=== PATIENT | male | born 1960 | race Caucasian/White ===

== ENCOUNTER 2020-03-25 13:54 | Emergency (ER) | payer BC ==
[2020-03-25] MEDS ORDERED: DEXAMETHASONE 4 MG TAB PO ONE (14:09)
--- NOTE | 2020-03-25 14:32 | RAD ---
EXAM DESCRIPTION: Chest,1 View CLINICAL HISTORY: 59 years Male, feeling bad in general COMPARISON: None. FINDINGS: Cardiomediastinal silhouette is normal. No focal consolidation, pneumothorax or pleural effusion. Osseous structures unremarkable. IMPRESSION: No acute findings. Electronically signed by: Nathan Davis MD 03/25/2020 2:31 PM CDT
[2020-03-25] MEDS ORDERED: PROCHLORPERAZINE INJ 10 MG/2 ML VIAL IV ONE (14:50)
--- NOTE | 2020-03-25 15:24 | ED.PDOC ---
History of Present Illness - General Chief Complaint: General Time Seen by Provider: 03/25/20 14:04 Source: patient Exam Limitations: no limitations - History of Present Illness Initial Comments: The patient is a 59-year-old male presented emergency room secondary to simply not feeling good for the last 3 to 4 days. The patient has had less energy. He has felt a little more achy. Maybe some very mild nausea intermittently. He has had a little poor sleep. The patient is away from home, working out of town and has been sleeping in the motel. No definite fever. No real cough or shortness of breath. No chest pain. He has been having some increased anxiety. He has not run out of any of his medications. No definitive coronavirus exposure. Timing/Duration: unsure Severity: mild Improving Factors: nothing Worsening Factors: nothing Associated Symptoms: other Allergies/Adverse Reactions: Allergies NO KNOWN ALLERGY Allergy (Verified 03/25/20 14:09) Home Medications: Ambulatory Orders Allopurinol 300 mg PO DAILY 03/25/20 Metoprolol Succinate [Metoprolol Succinate ER] 200 mg PO DAILY 03/25/20 Review of Systems - Review of Systems Constitutional: States: malaise EENTM: States: no symptoms reported Respiratory: States: no symptoms reported Cardiology: States: no symptoms reported Gastrointestinal/Abdominal: States: nausea Genitourinary: States: no symptoms reported Musculoskeletal: States: other - Mild myalgias Skin: States: no symptoms reported Neurological: States: headache - Mild Endocrine: States: other - Increased generalized fatigue All other Systems: No Change from Baseline Past Medical History (General) - Patient Medical History Hx Stroke: No Hx Dementia: No Hx Asthma: No Hx Cardiac Disorders: No Hx Congestive Heart Failure: No Hx Hypertension: Yes Hx Diabetes: No Hx Gastroesophageal Reflux: No Hx Renal Disease: No Surgical History: tonsillectomy Family Medical History - Family History Mother Family History: No Known Physical Exam - Physical Exam General Appearance: Alert, Comfortable, No apparent distress - The patient is obviously anxious Eye Exam: bilateral normal Ears, Nose, Throat: hearing grossly normal, normal pharynx Neck: full range of motion, supple Respiratory: lungs clear, normal breath sounds, no respiratory distress, no accessory muscle use Cardiovascular/Chest: normal peripheral pulses, regular rate, rhythm, no edema Peripheral Pulses: radial,right: 2+, radial,left: 2+ Gastrointestinal/Abdominal: non tender - Obese, soft Rectal Exam: deferred Back Exam: no CVA tenderness, no vertebral tenderness Extremity: normal range of motion, non-tender, normal inspection, no pedal edema, normal capillary refill Neurologic: equal opportunity assistant II-XII nml as tested, alert, normal mood/affect, oriented x 3 Skin Exam: normal color Comments: Vital Signs - 24 hr 03/25/20 03/25/20 14:05 14:12 Temperature 99.0 F Pulse Rate [ 63 apical] Respiratory 20 20 Rate Blood Pressure 165/94 [left brachial] O2 Sat by Pulse 99 Oximetry Progress - Progress Progress: 03/25/20 15:25 Patient is a 59-year-old male presented emergency room secondary to not feeling good for the last several days. No definitive pathology has been found that the patient is mildly dehydrated. He should increase his fluid intake. He does have a mildly low white blood cell count and mildly low platelet levels which are in all likelihood chronic. He does need to have these follow-up with his primary care doctor. Blood work, x-ray and urinalysis are otherwise clear at this time. Vital signs have remained stable. No hypoxia and no fever. Telemetry monitoring shows no significant arrhythmia. Patient will be discharged and does need to follow-up with his primary care doctor later in the month. ER warnings are given. [email or web address] [email or web address] [id number] - Results/Orders Results/Orders: Chest x-ray is essentially clear. EKG shows normal sinus rhythm at 64 bpm. Occasional PACs. Normal axis. Borderline slow R wave progression. No ST segment or T wave changes indicative of acute ischemia. Normal QT interval. No previous EKGs for comparison. Laboratory Tests 03/25/20 03/25/20 03/25/20 14:30 14:30 14:30 WBC 4.3 L RBC 4.46 L Hgb 14.3 Hct 41.4 L MCV 92.8 MCH 32.1 H MCHC 34.6 RDW 13.4 Plt Count 118 L MPV 9.5 Absolute Neuts (auto) 2.50 Absolute Lymphs (auto) 1.30 Absolute Monos (auto) 0.50 Absolute Eos (auto) 0.10 Absolute Basos (auto) 0.10 Neutrophils % 56.4 Lymphocytes % 29.4 Monocytes % 11.3 H Eosinophils % 1.6 Basophils % 1.3 PT 9.9 INR 1.00 PTT (SP) 22.1 D-Dimer, Quantitative 268.0 Sodium 137 Potassium 4.0 Chloride 104 Carbon Dioxide 25 Anion Gap 12.0 BUN 15 Creatinine 0.72 BUN/Creatinine Ratio 20.8 H Random Glucose 120 H Serum Osmolality 275.8 Calcium 9.5 Magnesium Total Bilirubin 0.5 AST 33 ALT 61 H Alkaline Phosphatase 47 Creatine Kinase 82 CK-MB (CK-2) 1.9 CK-MB (CK-2) % Not Reportable Troponin I < 0.02 B-Natriuretic Peptide 77.0 Serum Total Protein 6.8 Albumin 4.1 Globulin 2.7 Albumin/Globulin Ratio 1.5 Urine Color Urine Appearance Urine pH Ur Specific Carney Urine Protein Urine Glucose (UA) Urine Ketones Urine Blood Urine Nitrite Urine Bilirubin Urine Urobilinogen Ur Leukocyte Esterase Urine RBC Urine WBC Ur Epithelial Cells Urine Bacteria 03/25/20 03/25/20 14:30 14:57 WBC RBC Hgb Hct MCV MCH MCHC RDW Plt Count MPV Absolute Neuts (auto) Absolute Lymphs (auto) Absolute Monos (auto) Absolute Eos (auto) Absolute Basos (auto) Neutrophils % Lymphocytes % Monocytes % Eosinophils % Basophils % PT INR PTT (SP) D-Dimer, Quantitative Sodium Potassium Chloride Carbon Dioxide Anion Gap BUN Creatinine BUN/Creatinine Ratio Random Glucose Serum Osmolality Calcium Magnesium 1.7 L Total Bilirubin AST ALT Alkaline Phosphatase Creatine Kinase CK-MB (CK-2) CK-MB (CK-2) % Troponin I B-Natriuretic Peptide Serum Total Protein Albumin Globulin Albumin/Globulin Ratio Urine Color Yellow Urine Appearance Clear Urine pH 6.0 Ur Specific Carney 1.025 Urine Protein Negative Urine Glucose (UA) Negative Urine Ketones Negative Urine Blood Negative Urine Nitrite Negative Urine Bilirubin Negative Urine Urobilinogen 0.2 Ur Leukocyte Esterase Negative Urine RBC 0 Urine WBC 0 Ur Epithelial Cells 0 Urine Bacteria 0 Departure - Departure Clinical Impression: Generally unwell, Mild dehydration Disposition: Discharge to Home or Self Care Condition: Fair Departure Forms: ED Discharge - Pt. Copy, Patient Portal Self Enrollment Instructions: Dehydration, Adult (DC) Diet: regular diet Activity: increase activity as tolerated Home Medications: Ambulatory Orders Allopurinol 300 mg PO DAILY 03/25/20 Metoprolol Succinate [Metoprolol Succinate ER] 200 mg PO DAILY 03/25/20 Additional Instructions: Patient is a 59-year-old male presented emergency room secondary to not feeling good for the last several days. No definitive pathology has been found that the patient is mildly dehydrated. He should increase his fluid intake. He does have a mildly low white blood cell count and mildly low platelet levels which are in all likelihood chronic. He does need to have these follow-up with his primary care doctor. Blood work, x-ray and urinalysis are otherwise clear at this time. Vital signs have remained stable. No hypoxia and no fever. Telemetry monitoring shows no significant arrhythmia. Patient will be discharged and does need to follow-up with his primary care doctor later in the month. ER warnings are given.
[2020-03-25 16:09] VITALS: BP 162/104; TEMP 98.8; O2SAT 94
== END 2020-03-25 15:45 | disposition home or self-care (01) ==
LOC: ER 13:54
DX: E86.0 Dehydration (principal); R11.0 Nausea; R53.83 Other fatigue; I10 Essential (primary) hypertension